=== PATIENT | male | born 1990 | race Caucasian/White ===

== ENCOUNTER 2016-07-18 13:34 | Emergency (ER) | payer OTHER ==
[~2016-07-18] VITALS: Ht 167.6 cm; Wt 65.8 kg
[2016-07-18 18:01] VITALS: BP 118/56
--- NOTE | 2016-07-18 18:02 | ED GENERAL ADULT ---
History of Present Illness General Chief Complaint: Skin Rash/ Abcess Stated Complaint: SIB WALK-IN FOR ABCESS Source: patient Exam Limitations: no limitations Vital Signs & Intake/Output Vital Signs & Intake/Output Vital Signs Date Time Temp Pulse Resp B/P B/P Pulse O2 O2 Flow FiO2 Mean Ox Delivery Rate 07/18 1801 98.6 64 18 118/56 95 ED Intake and Output 07/19 0000 07/18 1200 Intake Total Output Total Balance Patient 145 lb Weight Weight Standing Scale Measurement Method Allergies Coded Allergies: No Known Allergies (07/18/16) Reconcile Medications Cephalexin (Keflex) 500 MG CAPSULE 1 CAP PO 4 TIMES/DAY cellulitis Sulfamethoxazole/Trimethoprim (Bactrim Ds Tablet) 800 MG-160 MG TABLET 1 TAB PO BID cellulitis Triage Note: 25 Y/O MALE SENT BY WALK IN FOR EVAL OF ABCESS TO [facility]. PT STATES HE HAS HX IVDA BUT HASN'T INJECTED "IN A WHILE". STATES HE NOTICED RED BUMP TO LAC AND THEN SIMILIAR BUMP TO RAC WHICH HAS GOTTEN WORSE OVER THE LAST WEEK. LARGE RED AREA NOTED WITH REDNESS SPREADING INTO R UPPER ARM. AFEBRILE. Triage Nurses Notes Reviewed? yes Onset: Last week Duration: day(s):, constant, getting worse Timing: recent history HPI: 25-year-old male with past medical history of IV drug use presenting with pain/ swelling/redness to right upper extremity times one week. Last IV drug injection to site was about one month ago. Reports he had a similar recent episode to left upper extremity which had self resolved. Denies fevers or drainage. Has not tried anything for pain relief. (KING HERNANDEZ PA-C) Past History Travel History Traveled to [place] past 21 day No Medical History Any Pertinent Medical History? see below for history Neurological: NONE EENT: NONE Cardiovascular: NONE Respiratory: NONE Gastrointestinal: NONE Hepatic: NONE Renal: NONE Musculoskeletal: NONE Psychiatric: NONE Endocrine: NONE Blood Disorders: NONE Cancer(s): NONE INSPECTOR FIREARMS/Reproductive: NONE Surgical History Surgical History: non-contributory Psychosocial History What is your primary language Armenian Tobacco Use: Current Daily Use Daily Tobacco Use Amount/Type: => 5 Cigarettes daily Family History Hx Contributory? No (KING HERNANDEZ PA-C) Review of Systems Review of Systems Constitutional: Reports: no symptoms. Respiratory: Reports: no symptoms. Cardiovascular: Reports: no symptoms. Skin: Reports: erythema, lumps. (KING HERNANDEZ PA-C) Physical Exam Physical Exam General Appearance: well developed/nourished, no apparent distress Head: atraumatic Respiratory: normal breath sounds, lungs clear Cardiovascular: regular rate/rhythm Extremities: swelling, tenderness, On exam of RUE there is an indurated mass that is TTP proximal to the AC with surrounding erythema extenidng to about mid humerus and mid forearm, normal senation, motor strength 5/5, distal pulses palpable, no drainage on exam. Core Measures ACS in differential dx? No CVA/TIA Diagnosis: No Severe Sepsis Present: No Septic Shock Present: No (KING HERNANDEZ PA-C) Progress Differential Diagnoses I considered the following diagnoses in my evaluation of the patient: [ Cellulitis versus abscess versus thrombophlebitis versus pseudoaneurysm.] Plan of Care: Orders Procedure Date/time Status US-SUPERFICIAL IMAGING EXTREMI 07/18 1503 Active Ultrasound report not crossing over into So[facility], spoke with radiologist who reports no evidence of thrombophlebitis or pseudoaneurysm, there is evidence of phlegmon but no drainable abscess on ultrasound. Will cover with both Keflex and Bactrim as patient is at increased risk for MRSA. Instructed to follow up with his primary care provider for reevaluation. (KING HERNANDEZ PA-C) Initial ED EKG: none (KING HERNANDEZ PA-C) Departure Departure Disposition: HOME OR SELF CARE Condition: Stable Clinical Impression Primary Impression: Cellulitis Referrals: PATIENT HAS NO PRIMARY CARE DR (PCP/Family) Additional Instructions: Take Keflex 500 mg by mouth 4 times daily for 10 days. Take Bactrim 1 tablet by mouth 2 times daily for 10 days. Follow-up with primary care provider for reevaluation. Return to the ED for any new or worsening symptoms. Departure Forms: Customer Survey General Discharge Information Prescriptions: Current Visit Scripts Cephalexin (Keflex) 1 CAP PO 4 TIMES/DAY 10 Days Sulfamethoxazole/Trimethoprim (Bactrim Ds Tablet) 1 TAB PO BID 10 Days (KING HERNANDEZ PA-C) PA/PYROTECHNIC ASSEMBLER Co-Sign Statement Statement: ED Attending supervision documentation- [] I saw and evaluated the patient. I have also reviewed all the pertinent lab results and diagnostic results. I agree with the findings and the plan of care as documented in the PA's/PYROTECHNIC ASSEMBLER's documentation. [x] I have reviewed the ED Record and agree with the PA's/PYROTECHNIC ASSEMBLER's documentation. [] Additions or exceptions (if any) to the PAs/PYROTECHNIC ASSEMBLER's note and plan are summarized below: [] (BEVERLY TONEY DO) Critical Care Note Critical Care Note Critical Care Time: non-applicable (MARY MAYBERRY,KING)
[2016-07-18] MEDS ORDERED: BACTRIM DS TAB1 EACH PO (18:04)
[2016-07-18] MEDS ORDERED: KEFLEX500 M1 PO (18:04)
--- NOTE | 2016-07-19 09:56 | ULTRASOUND REPORT ---
EXAMINATION: US SUPERFICIAL IMAGING, EXTREMITY CLINICAL INFORMATION: Pain and swelling to right upper extremity. Presumptive diagnosis of abscess versus thrombophlebitis versus pseudoaneurysm. COMPARISON: None TECHNIQUE: Focused ultrasound of the right upper arm was performed in region of patient's erythema and focal lump. Real-time assessment by the reading radiologist was performed. FINDINGS: There is diffuse skin thickening seen in region of patient's erythema over the distal right upper arm, measuring up to 0.5 cm in thickness. With color Doppler assessment, mild hyperemia is noted. Underlying the focal palpable lump just proximal to the antecubital fossa, a ovoid complex fluid collection is seen, measuring 2.5 x 1.2 x 2.3 cm. There is prominent vascular flow seen in the periphery of this collection, which is suspicious for a phlegmonous collection/evolving abscess. The cephalic vein extends into this collection and demonstrates slow flow but remains patent. Please note, a dedicated right upper extremity venous Doppler ultrasound was not performed. IMPRESSION: 1. Focal phlegmonous collection/evolving abscess is seen in region of patient's palpable lump just above the antecubital fossa. 2. Associated cephalic vein is patent but demonstrates slow flow.
== END 2016-07-18 18:10 ==
LOC: ERH 13:34
DX: L03.113 Cellulitis of right upper limb (principal)
CPT/HCPCS: 76881